=== PATIENT | female | born 1985 | race African-American/Black ===

== ENCOUNTER 2023-12-14 18:06 | Emergency (ER) | payer SELFPAY ==
[~2023-12-14] VITALS: Ht 162.6 cm; Wt 73.0 kg
[2023-12-14 18:45] VITALS: BP 123/81; PULSE 120; RESP 18; O2SAT 99
== END 2023-12-14 18:51 | disposition left against medical advice (07) ==
LOC: EDBD 18:06 → ER 18:06
DX: Z04.3 Encounter for examination and observation following other accident (principal); Z53.21 Procedure and treatment not carried out due to patient leaving prior to being seen by health care provider; X58.XXXA Exposure to other specified factors, initial encounter; Y93.89 Activity, other specified; Y92.89 Other specified places as the place of occurrence of the external cause; Y99.8 Other external cause status

== ENCOUNTER 2024-04-09 20:18 | Emergency (ER) | payer MEDICAID, OTHER ==
[~2024-04-09] VITALS: Ht 162.6 cm; Wt 72.0 kg
[2024-04-09 22:29] LABS: Basophils # (auto) 0.1 10 ^3/uL (0-0.2); Basophils % (auto) 1.4 % (0.0-2.0); Eosinophils # (auto) 0.4 10 ^3/uL (0-0.8); Eosinophils % (auto) 3.9 % (0.0-7.0); Hematocrit 34.8 % (36.0-46.0); Hemoglobin 11.3 g/dL (12.2-16.2); Lymphocytes # (auto) 2.4 10 ^3/uL (0.4-5.4); Lymphocytes % (auto) 24.6 % (10.0-50.0); Mean Corpuscular Hemoglobin 29.7 pg (28.0-32.0); Mean Corpuscular Hgb Conc. 32.4 g/dL (32.0-36.0); Mean Corpuscular Volume 91.8 fL (80.0-100.0); Monocytes # (auto) 0.7 10 ^3/uL (0-1.3); Monocytes % (auto) 7.5 % (0.0-12.0); Neutrophils # (auto) 6.1 10 ^3/uL (1.6-8.6); Neutrophils % (auto) 62.6 % (37.0-80.0); Nucleated Red Blood Cells % 0.1 %; Red Blood Cells 3.79 10^6/uL (4.0-5.20); Red Cell Distribution Width 13.6 % (11.8-14.3); White Blood Cell 9.8 10^3/uL (4.4-10.8)
[2024-04-09 22:49] LABS: Acetaminophen < 2.0 UG/ML (10.0-20.0); Alanine Aminotransferase 12 U/L (7-40); Alkaline Phosphatase 63 U/L (46-116); Anion Gap 5 (5-15); Aspartate Aminotransferase 18 U/L (13-40); BUN/Creatinine Ratio 8.7 (10.0-20.0); Blood Alcohol < 3.0 mg/dL (<10); Blood Urea Nitrogen 8 mg/dL (9-23); Carbon Dioxide 32 mmol/L (20-30); Chloride 106 mmol/L (98-107); Glucose 106 mg/dL (74-106); Potassium 2.7 mmol/L (3.5-5.1); Sodium 143 mmol/L (136-145)
[2024-04-09 22:50] LABS: Bilirubin, Total 0.2 mg/dL (0.2-1.0); Salicylate < 3.0 mg/dL (2.8-20.0); Total Protein 6.8 g/dL (5.7-8.2)
[2024-04-09] MEDS: LORazepam 2MG/ML-1ML VIAL IM ONE (23:58)
[2024-04-10 01:07] VITALS: TEMP 97.7
[2024-04-10] MEDS: POTASSIUM CHL 20 Meq TABLET PO ONE (01:13)
[2024-04-10 05:55] LABS: Urine Bacteria None Seen /hpf (None Seen)
[2024-04-10 06:16] LABS: Amphetamine Screen, Urine Neg (NEGATIVE)
[2024-04-10 06:17] LABS: Barbiturate Scree,Urine Neg (NEGATIVE); Benzodiazephine Screen, Urine Neg (NEGATIVE); Cannabinoid Screen, Urine Pos (NEGATIVE); Cocaine Screen, Urine Pos (NEGATIVE); Opiate Scree,Urine Neg (NEGATIVE); Phencyclidine Screen, Urine Neg (NEGATIVE)
[2024-04-10 06:18] LABS: Urine Blood Negative /uL (Negative); Urine Clarity Clear (Clear); Urine Color Light-Yellow (Yellow); Urine Protein, UAD TRACE (Negative); Urine Specific Gravity 1.021 (1.001-1.035); Urine Urobilinogen Normal (Negative); Urine WBC 3 /hpf (0 - 5)
[2024-04-10 07:42] VITALS: RESP 16
[2024-04-10 09:40] VITALS: BP 130/76; PULSE 93; O2SAT 98
== END 2024-04-10 12:00 | disposition left against medical advice (07) ==
LOC: ER 20:18
DX: F41.9 Anxiety disorder, unspecified (principal); F32.9 Major depressive disorder, single episode, unspecified; M54.6 Pain in thoracic spine; F20.9 Schizophrenia, unspecified
CPT/HCPCS: 36415; 72070; 72100; 80053; 80307; 80320; 80329; 81001; 81025; 85025; 96372; 99284; J2060